=== PATIENT | female | born 1965 | race Caucasian/White ===

== ENCOUNTER 2016-12-08 03:26 | Emergency (ER) | payer MEDICAID ==
[~2016-12-08] VITALS: Ht 165.1 cm; Wt 77.0 kg
[~2016-12-08 03:26] MED LIST: ATOR10TA69 PO; CARV3.1242 PO; DOCU-150 PO; FLUO-124 PO; HYDR25TA PO; LORA10TA7 PO; LORA1TAB PO; LOSA100T14 PO; MAPAP PO; METF500T4 PO; NIFE30TA94 PO; PANT40TA4 PO
[2016-12-08] MEDS ORDERED: LORAZEPAM 0.5MG TABLET PO ONE (07:30)
[2016-12-08 08:05] VITALS: BP 132/78
== END 2016-12-08 09:07 | disposition home or self-care (01) ==
LOC: ER 08:47
DX: F41.9 Anxiety disorder, unspecified (principal); M25.511 Pain in right shoulder; R11.0 Nausea; I10 Essential (primary) hypertension; E78.00 Pure hypercholesterolemia, unspecified; E11.9 Type 2 diabetes mellitus without complications; Z79.899 Other long term (current) drug therapy
CPT/HCPCS: 99284

== ENCOUNTER 2017-04-23 15:33 | Emergency (ER) | payer MEDICAID ==
[~2017-04-23] VITALS: Ht 165.1 cm; Wt 74.0 kg
[2017-04-23] MEDS ORDERED: LABETALOL HCL 20MG/4ML CARPUJECT IV PRN (16:45)
[2017-04-23] MEDS ORDERED: LABETALOL 5MG/ML SYR 20 MG/4 ML SYRINGE IV PRN (16:50)
[2017-04-23 17:29] LABS: BASOPHILS % 0.3 % (0.0-2.0); EOSINOPHILS % 1.3 % (0.0-5.0); HEMATOCRIT. 41.2 % (36.0-48.0); HEMOGLOBIN. 13.8 g/dL (12.0-16.0); MEAN CORPUSCULAR HEMOGLOBIN 29.3 pg (28.0-32.0); MEAN CORPUSCULAR VOLUME 87.4 fL (81.0-99.0); MEAN PLATELET VOLUME 8.6 fl (7.4-10.4); MONOCYTES % 5.9 % (2.0-8.0); NEUTROPHILS % 67.5 % (40.0-76.0); PLATELET 310 x1000/uL (130-400); RED BLOOD CELL COUNT 4.71 mill/uL (4.2-5.4); RED CELL DISTRIBUTION WIDTH 14.8 % (11.6-14.6)
[2017-04-23 17:34] LABS: PROTHROMBIN TIME 10.8 sec (9.4-11.6)
[2017-04-23 17:44] LABS: CARBON DIOXIDE 26 mEq/L (21-32); CHLORIDE 103 mEq/L (98-107); TROPONIN I < 0.02 ng/mL (0.00-0.04)
[2017-04-23 18:53] LABS: *AMPHETAMINES SCREEN URINE NEGATIVE (NEGATIVE); *BARBITURATES SCREEN URINE NEGATIVE (NEGATIVE); *BENZODIAZEPINES SCREEN URINE NEGATIVE (NEGATIVE); *COCAINE SCREEN URINE NEGATIVE (NEGATIVE); CANNABINOID URINE SCREEN NEGATIVE (NEGATIVE); METHADONE URINE SCREEN NEGATIVE (NEGATIVE); OPIATES URINE SCREEN NEGATIVE (NEGATIVE); PHENCYCLIDINE URINE SCREEN NEGATIVE (NEGATIVE)
[2017-04-23] MEDS ORDERED: KETOROLAC 30MG/ML VIAL IV ONE (19:15)
[2017-04-23 21:00] VITALS: BP 135/85
== END 2017-04-23 21:38 | disposition home or self-care (01) ==
LOC: ER 15:33
DX: I10 Essential (primary) hypertension (principal); M54.2 Cervicalgia; M54.9 Dorsalgia, unspecified; M25.519 Pain in unspecified shoulder; E11.9 Type 2 diabetes mellitus without complications; E78.00 Pure hypercholesterolemia, unspecified
CPT/HCPCS: 36415; 71010; 80048; 80305; 82962; 83880; 84484; 85025; 85610; 93005; 96374; 96375; 99285; J1885; Z7610; J3490

== ENCOUNTER 2017-04-28 19:36 | Emergency (ER) | payer MEDICAID ==
[~2017-04-28] VITALS: Ht 165.1 cm; Wt 79.0 kg
[2017-04-28] MEDS ORDERED: LORAZEPAM 2MG/ML CPJ IV STA (23:26)
[2017-04-28] MEDS ORDERED: KETOROLAC 30MG/ML VIAL IV STA (23:26)
[2017-04-29] MEDS ORDERED: HYDROCODONE/ACETAMINOPHEN 10/325MG TABLET PO ONE (04:30)
[2017-04-29 04:49] VITALS: BP 113/80
== END 2017-04-29 04:51 | disposition home or self-care (01) ==
LOC: ER 19:36
DX: I10 Essential (primary) hypertension (principal); F41.9 Anxiety disorder, unspecified; E11.9 Type 2 diabetes mellitus without complications; M54.2 Cervicalgia; Z79.899 Other long term (current) drug therapy
CPT/HCPCS: 82962; 96374; 96375; 99284; J1885; J2060; J7030; Z7610

== ENCOUNTER 2018-01-03 01:28 | Emergency (ER) | payer MEDICAID ==
[~2018-01-03] VITALS: Ht 162.6 cm; Wt 79.0 kg
[~2018-01-03 01:28] MED LIST changes: -HYDR25TA PO
[2018-01-03] MEDS ORDERED: KETOROLAC 30MG/ML VIAL IV STA (03:49)
[2018-01-03 04:21] LABS: BASOPHILS % 0.3 % (0.0-2.0); EOSINOPHILS % 0.7 % (0.0-5.0); HEMATOCRIT. 39.1 % (36.0-48.0); HEMOGLOBIN. 13.2 g/dL (12.0-16.0); LYMPHOCYTES % 12.9 % (20.0-50.0); MEAN CORPUSCULAR HEMOGLOBIN 29.9 pg (28.0-32.0); MEAN CORPUSCULAR VOLUME 88.4 fL (81.0-99.0); MEAN PLATELET VOLUME 8.3 fl (7.4-10.4); MONOCYTES % 4.7 % (2.0-8.0); NEUTROPHILS % 81.4 % (40.0-76.0); PLATELET 293 x1000/uL (130-400); RED BLOOD CELL COUNT 4.42 mill/uL (4.2-5.4); RED CELL DISTRIBUTION WIDTH 14.3 % (11.6-14.6)
[2018-01-03 04:25] LABS: CHLORIDE 104 mEq/L (98-107)
[2018-01-03 04:26] LABS: INR 1.1; PARTIAL THROMBOPLASTIN TIME 28.3 sec (23.4-31.0); PROTHROMBIN TIME 11.3 sec (9.4-11.6)
[2018-01-03 06:30] VITALS: BP 145/92
== END 2018-01-03 06:30 | disposition home or self-care (01) ==
LOC: ER 01:28 → CANBEDREQ 07:35
DX: I10 Essential (primary) hypertension (principal); R51 Headache; D72.829 Elevated white blood cell count, unspecified; E11.9 Type 2 diabetes mellitus without complications
CPT/HCPCS: 36415; 80053; 83880; 84484; 85025; 85610; 85730; 93005; 96374; 99285; J1885; Z7610

== ENCOUNTER 2018-07-11 13:23 | Emergency (ER) | payer MEDICAID ==
[~2018-07-11] VITALS: Ht 165.1 cm; Wt 79.0 kg
[~2018-07-11 13:23] MED LIST changes: +METF-414 PO; -METF500T4 PO
[2018-07-11] MEDS ORDERED: MORPHINE SULFATE 4 MG/ML CPJ (NOT FOR IM USE) IV STA (14:20)
[2018-07-11] MEDS ORDERED: ONDANSETRON HCL 4MG/2ML INJ IV STA (14:20)
[2018-07-11] MEDS ORDERED: KETOROLAC 30MG/ML VIAL IV STA (14:20)
[2018-07-11 15:01] LABS: BASOPHILS % 0.4 % (0.0-2.0); EOSINOPHILS % 1.5 % (0.0-5.0); HEMATOCRIT. 41.1 % (36.0-48.0); HEMOGLOBIN. 13.6 g/dL (12.0-16.0); LYMPHOCYTES % 19.8 % (20.0-50.0); MEAN CORPUSCULAR HEMOGLOBIN 29.8 pg (28.0-32.0); MEAN CORPUSCULAR VOLUME 89.9 fL (81.0-99.0); MEAN PLATELET VOLUME 8.5 fl (7.4-10.4); MONOCYTES % 6.4 % (2.0-8.0); NEUTROPHILS % 71.9 % (40.0-76.0); PLATELET 324 x1000/uL (130-400); RED BLOOD CELL COUNT 4.58 mill/uL (4.2-5.4); RED CELL DISTRIBUTION WIDTH 14.4 % (11.6-14.6)
[2018-07-11 15:03] LABS: CHLORIDE 102 mEq/L (98-107)
[2018-07-11 15:11] LABS: PARTIAL THROMBOPLASTIN TIME 27.3 sec (23.4-31.0); PROTHROMBIN TIME 10.3 sec (9.1-11.1)
[2018-07-11 15:12] LABS: CREATINE KINASE 94 IU/L (26-192)
[2018-07-11] MEDS ORDERED: LORAZEPAM 2MG/ML CPJ IV ONE (15:15)
[2018-07-11 16:09] VITALS: BP 148/88
== END 2018-07-11 16:14 | disposition home or self-care (01) ==
LOC: ER 13:23
DX: S16.1XXA Strain of muscle, fascia and tendon at neck level, initial encounter (principal); M62.838 Other muscle spasm; E11.9 Type 2 diabetes mellitus without complications; I10 Essential (primary) hypertension; Z79.899 Other long term (current) drug therapy; X58.XXXA Exposure to other specified factors, initial encounter; Y93.89 Activity, other specified; Y92.89 Other specified places as the place of occurrence of the external cause; Y99.8 Other external cause status
CPT/HCPCS: 36415; 80053; 82550; 83690; 83880; 84484; 85025; 85610; 85730; 96374; 96375; 99283; J1885; J2060; J2270; J2405

== ENCOUNTER 2018-11-11 01:27 | Emergency (ER) | payer MEDICAID ==
[~2018-11-11] VITALS: Ht 165.1 cm; Wt 81.0 kg
[2018-11-11] MEDS ORDERED: ASPIRIN 81MG TABLET PO ONE (08:00)
[2018-11-11 08:17] LABS: BASOPHILS % 0.4 % (0.0-2.0); EOSINOPHILS % 1.9 % (0.0-5.0); HEMOGLOBIN. 13.8 g/dL (12.0-16.0); LYMPHOCYTES % 28.6 % (20.0-50.0); MEAN CORPUSCULAR HEMOGLOBIN 29.9 pg (28.0-32.0); MEAN PLATELET VOLUME 7.8 fl (7.4-10.4); MONOCYTES % 6.3 % (2.0-8.0); NEUTROPHILS % 62.8 % (40.0-76.0); PLATELET 356 x1000/uL (130-400); RED BLOOD CELL COUNT 4.61 mill/uL (4.2-5.4); RED CELL DISTRIBUTION WIDTH 13.9 % (11.6-14.6)
[2018-11-11 08:24] LABS: CHLORIDE 103 mEq/L (98-107)
[2018-11-11] MEDS ORDERED: HYDROCODONE/ACETAMINOPHEN 5/325MG TABLET PO ONE (10:00)
[2018-11-11 12:56] VITALS: BP 168/90
== END 2018-11-11 12:59 | disposition home or self-care (01) ==
LOC: ER 01:27
DX: M79.10 Myalgia, unspecified site (principal); R03.0 Elevated blood-pressure reading, without diagnosis of hypertension; J45.909 Unspecified asthma, uncomplicated; E11.9 Type 2 diabetes mellitus without complications; I10 Essential (primary) hypertension; B02.9 Zoster without complications
CPT/HCPCS: 36415; 71045; 80053; 84484; 85025; 93005; 99284; Z7610

== ENCOUNTER 2019-03-24 03:18 | Emergency (ER) | payer MEDICAID ==
[~2019-03-24] VITALS: Ht 165.1 cm; Wt 81.0 kg
[~2019-03-24 03:18] MED LIST changes: -LOSA100T14 PO; +LOSA100T32 PO
[2019-03-24] MEDS ORDERED: KETOROLAC 60MG/2ML VIAL IM STA (03:58)
[2019-03-24 04:16] LABS: BASOPHILS % 0.2 % (0.0-2.0); EOSINOPHILS % 1.6 % (0.0-5.0); HEMATOCRIT. 39.8 % (36.0-48.0); HEMOGLOBIN. 13.3 g/dL (12.0-16.0); LYMPHOCYTES % 24.1 % (20.0-50.0); MEAN CORPUSCULAR HEMOGLOBIN 29.6 pg (28.0-32.0); MEAN CORPUSCULAR VOLUME 88.9 fL (81.0-99.0); MEAN PLATELET VOLUME 8.3 fl (7.4-10.4); MONOCYTES % 6.4 % (2.0-8.0); NEUTROPHILS % 67.7 % (40.0-76.0); PLATELET 325 x1000/uL (130-400); RED BLOOD CELL COUNT 4.48 mill/uL (4.2-5.4); RED CELL DISTRIBUTION WIDTH 14.6 % (11.6-14.6)
[2019-03-24 04:23] LABS: CHLORIDE 105 mEq/L (98-107)
[2019-03-24 04:32] LABS: T4 FREE 1.04 ng/dL (0.76-1.46)
[2019-03-24 05:45] VITALS: BP 154/89
== END 2019-03-24 05:52 | disposition home or self-care (01) ==
LOC: ER 03:18
DX: I10 Essential (primary) hypertension (principal); R07.9 Chest pain, unspecified; F41.9 Anxiety disorder, unspecified; E11.9 Type 2 diabetes mellitus without complications; K21.9 Gastro-esophageal reflux disease without esophagitis
CPT/HCPCS: 36415; 80053; 83880; 84439; 84443; 84484; 85025; 93005; 96372; 99284; J1885

== ENCOUNTER 2019-09-25 12:08 | Inpatient (IN) | payer MEDICAID ==
[~2019-09-25] VITALS: Ht 162.6 cm; Wt 84.0 kg
[~2019-09-25 12:08] MED LIST changes: -FLUO-124 PO; +FLUO20CA39 PO
[2019-09-25] MEDS ORDERED: MORPHINE SULFATE 4 MG/ML CPJ (NOT FOR IM USE) IV ONE (18:00)
[2019-09-25] MEDS ORDERED: KETOROLAC 30MG/ML VIAL IV ONE (18:00)
[2019-09-25] MEDS ORDERED: CLONIDINE 0.2MG TABLET PO ONE (18:00)
[2019-09-25 18:02] LABS: BASOPHILS % 0.6 % (0.0-2.0); EOSINOPHILS % 1.1 % (0.0-5.0); HEMATOCRIT. 44.8 % (36.0-48.0); LYMPHOCYTES % 27.7 % (20.0-50.0); MEAN CORPUSCULAR HEMOGLOBIN 29.3 pg (28.0-32.0); MEAN CORPUSCULAR VOLUME 87.4 fL (81.0-99.0); MEAN PLATELET VOLUME 8.2 fl (7.4-10.4); MONOCYTES % 6.2 % (2.0-8.0); NEUTROPHILS % 64.4 % (40.0-76.0); PLATELET 383 x1000/uL (130-400); RED BLOOD CELL COUNT 5.12 mill/uL (4.2-5.4); RED CELL DISTRIBUTION WIDTH 14.1 % (11.6-14.6)
[2019-09-25 18:08] LABS: CHLORIDE 104 mEq/L (98-107)
[2019-09-25 18:58] LABS: CLARITY URINE CLEAR (CLEAR); COLOR URINE YELLOW (YELLOW); KETONES URINE TRACE (NEGATIVE); LEUKOCYTE ESTERASE URINE NEGATIVE (NEGATIVE); NITRITE URINE NEGATIVE (NEGATIVE); OCCULT BLOOD URINE 1+ (NEGATIVE); PROTEIN URINE TRACE (NEGATIVE); SPECIFIC GRAVITY URINE 1.008 (1.005-1.030); UROBILINOGEN URINE 0.2 E.U./dL (0.2-1.0)
[2019-09-25] MEDS ORDERED: HYDRALAZINE 20MG/ML VIAL IV NR (20:00)
[2019-09-25] MEDS ORDERED: NA PHOS,M-B/NA PHOS,DI-BA ENEMA 118ML PR PRN (21:15)
[2019-09-25] MEDS ORDERED: IPRATROPIUM/ALBUTEROL 0.5-3(2.5)MG/3ML NEB NEB PRN (21:15)
[2019-09-25] MEDS ORDERED: GUAIFENESIN 200MG/10ML SUGAR FREE UDC PO PRN (21:15)
[2019-09-25] MEDS ORDERED: HYDRALAZINE 20MG/ML VIAL IV PRN (21:15)
[2019-09-25] MEDS ORDERED: CARVEDILOL 3.125 MG TABLET PO SCH (21:15)
[2019-09-25] MEDS ORDERED: DOCUSATE SODIUM 100MG CAPSULE PO PRN (21:15)
[2019-09-25] MEDS ORDERED: DIPHENHYDRAMINE 50MG/ML VIAL IV PRN (21:15)
[2019-09-25] MEDS ORDERED: DEXTROSE 50% WATER 50ML SYRINGE IV PRN (21:15)
[2019-09-25] MEDS ORDERED: MORPHINE SULFATE 2 MG/ML CPJ (NOT FOR IM USE) IV PRN (21:15)
[2019-09-25] MEDS ORDERED: CLONIDINE 0.1MG TABLET PO PRN (21:15)
[2019-09-25] MEDS ORDERED: MAGNESIUM/ALUMINUM HYDROXIDE/SIMETHICONE 30ML UDC PO PRN (21:15)
[2019-09-25] MEDS ORDERED: LORAZEPAM 2MG/ML CPJ IV PRN (21:15)
[2019-09-25] MEDS ORDERED: ONDANSETRON HCL 4MG/2ML INJ IV PRN (21:15)
[2019-09-25] MEDS ORDERED: HYDROCODONE/ACETAMINOPHEN 10/325MG TABLET PO PRN (21:15)
[2019-09-26 04:45] LABS: BASOPHILS % 0.3 % (0.0-2.0); EOSINOPHILS % 0.4 % (0.0-5.0); HEMATOCRIT. 39.2 % (36.0-48.0); HEMOGLOBIN. 12.8 g/dL (12.0-16.0); LYMPHOCYTES % 18.6 % (20.0-50.0); MEAN CORPUSCULAR HEMOGLOBIN 28.9 pg (28.0-32.0); MEAN CORPUSCULAR VOLUME 88.2 fL (81.0-99.0); MEAN PLATELET VOLUME 8.4 fl (7.4-10.4); MONOCYTES % 7.2 % (2.0-8.0); NEUTROPHILS % 73.5 % (40.0-76.0); PLATELET 347 x1000/uL (130-400); RED BLOOD CELL COUNT 4.44 mill/uL (4.2-5.4); RED CELL DISTRIBUTION WIDTH 14.5 % (11.6-14.6)
[2019-09-26 04:50] LABS: CHLORIDE 105 mEq/L (98-107)
[2019-09-26 04:59] LABS: CREATINE KINASE MB FRACTION < 1.0 ng/mL (0.5-3.6); LDL CHOLESTEROL 154 mg/dL (5-100)
[2019-09-26 05:00] LABS: CREATINE KINASE 71 IU/L (26-192)
[2019-09-26 05:01] LABS: HDL CHOLESTEROL 56 mg/dL (40-59); T4 FREE 0.89 ng/dL (0.76-1.46)
[2019-09-26 11:00] VITALS: BP 159/102
[2019-09-26] MEDS: BLOOD SUGAR DIAGNOSTIC STRIP TEST SCH ×3 (12:11→21:00)
[2019-09-26] MEDS: INSULIN LISPRO 100 UNITS/ML SUBCUT SCH ×3 (12:11→21:00)
[2019-09-26] MEDS: ENOXAPARIN 40MG/0.4ML SYR SUBCUT SCH (12:28)
[2019-09-26] MEDS: SODIUM CHLORIDE 0.9% INJ 3ML FLUSH IVF SCH ×2 (13:31→22:00)
[2019-09-26] MEDS ORDERED: REGADENOSON 0.4 MG/5 ML IV NR (15:15)
[2019-09-26 16:00] VITALS: BP 151/86
[2019-09-26] MEDS: ACETAMINOPHEN 325MG TABLET PO PRN (17:27)
[2019-09-26 20:00] VITALS: BP 123/71
[2019-09-27] VITALS: BP 110/70
[2019-09-27 04:00] VITALS: BP 149/92
[2019-09-27] MEDS: SODIUM CHLORIDE 0.9% INJ 3ML FLUSH IVF SCH ×3 (06:00→21:28)
[2019-09-27 06:17] LABS: BASOPHILS % 0.3 % (0.0-2.0); EOSINOPHILS % 2.5 % (0.0-5.0); HEMATOCRIT. 40.4 % (36.0-48.0); HEMOGLOBIN. 13.4 g/dL (12.0-16.0); LYMPHOCYTES % 38.5 % (20.0-50.0); MEAN CORPUSCULAR HEMOGLOBIN 29.3 pg (28.0-32.0); MEAN CORPUSCULAR VOLUME 88.2 fL (81.0-99.0); MEAN PLATELET VOLUME 8.5 fl (7.4-10.4); MONOCYTES % 8.2 % (2.0-8.0); NEUTROPHILS % 50.5 % (40.0-76.0); PLATELET 354 x1000/uL (130-400); RED BLOOD CELL COUNT 4.58 mill/uL (4.2-5.4); RED CELL DISTRIBUTION WIDTH 14.1 % (11.6-14.6)
[2019-09-27] MEDS: ACETAMINOPHEN 325MG TABLET PO PRN ×2 (06:36→16:27)
[2019-09-27] MEDS: BLOOD SUGAR DIAGNOSTIC STRIP TEST SCH ×4 (07:33→21:28)
[2019-09-27 08:00] VITALS: BP 128/80
[2019-09-27] MEDS: INSULIN LISPRO 100 UNITS/ML SUBCUT SCH ×4 (08:10→21:00)
[2019-09-27 09:41] LABS: CHLORIDE 106 mEq/L (98-107)
[2019-09-27] MEDS ORDERED: REGADENOSON 0.4 MG/5 ML IV ONE (10:53)
[2019-09-27 12:00] VITALS: BP 128/85
[2019-09-27] MEDS ORDERED: HYDRALAZINE 20MG/ML VIAL ONE (12:04)
[2019-09-27] MEDS: ENOXAPARIN 40MG/0.4ML SYR SUBCUT SCH (13:31)
[2019-09-27 16:00] VITALS: BP 140/90
[2019-09-27 20:00] VITALS: BP 110/72
[2019-09-27] MEDS: AMLODIPINE 2.5MG TABLET PO SCH (21:28)
[2019-09-28] VITALS: BP 132/87
[2019-09-28 04:00] VITALS: BP 123/83
[2019-09-28] MEDS: SODIUM CHLORIDE 0.9% INJ 3ML FLUSH IVF SCH (05:50)
[2019-09-28 06:53] LABS: BASOPHILS % 0.2 % (0.0-2.0); EOSINOPHILS % 2.5 % (0.0-5.0); HEMATOCRIT. 38.7 % (36.0-48.0); HEMOGLOBIN. 12.9 g/dL (12.0-16.0); LYMPHOCYTES % 31.6 % (20.0-50.0); MEAN CORPUSCULAR HEMOGLOBIN 29.6 pg (28.0-32.0); MEAN CORPUSCULAR VOLUME 88.4 fL (81.0-99.0); MONOCYTES % 8.2 % (2.0-8.0); NEUTROPHILS % 57.5 % (40.0-76.0); PLATELET 366 x1000/uL (130-400); RED BLOOD CELL COUNT 4.37 mill/uL (4.2-5.4)
[2019-09-28 08:00] VITALS: BP 170/99
[2019-09-28] MEDS: INSULIN LISPRO 100 UNITS/ML SUBCUT SCH (08:10)
[2019-09-28] MEDS: BLOOD SUGAR DIAGNOSTIC STRIP TEST SCH (08:16)
[2019-09-28] MEDS: AMLODIPINE 2.5MG TABLET PO SCH (09:00)
[2019-09-28] MEDS: ENOXAPARIN 40MG/0.4ML SYR SUBCUT SCH (09:01)
[2019-09-28 09:13] LABS: CHLORIDE 106 mEq/L (98-107)
[2019-09-28 09:54] VITALS: BP 148/87
== END 2019-09-28 10:39 | disposition home or self-care (01) | DRG 243 ==
LOC: ER 12:08 → 7WST 20:57 → CANRESERV 21:34 → ENRESERV 21:34 → EDBEDREQTM 21:50 → EDBEDREQSVC 21:50 → ENRESERV 09-26 08:38 → CANRESERV 09-26 08:38
PROVIDERS: ADMIT Internal Medicine; ATTEND Internal Medicine
DX: K21.9 Gastro-esophageal reflux disease without esophagitis (principal); R65.10 Systemic inflammatory response syndrome (SIRS) of non-infectious origin without acute organ dysfunction; E11.9 Type 2 diabetes mellitus without complications; I16.9 Hypertensive crisis, unspecified; E78.5 Hyperlipidemia, unspecified; F41.9 Anxiety disorder, unspecified; K44.9 Diaphragmatic hernia without obstruction or gangrene; M54.2 Cervicalgia; E78.00 Pure hypercholesterolemia, unspecified; I10 Essential (primary) hypertension; Z79.84 Long term (current) use of oral hypoglycemic drugs; Z79.899 Other long term (current) drug therapy
CPT/HCPCS: 36415; 71045; 78452; 80048; 80053; 80061; 81003; 82550; 82553; 82962; 83735; 84439; 84443; 84484; 85025; 93005; 93017; 93970; 99291; A9500; J0360; J1650; J1885; J2270; J2785

== ENCOUNTER 2020-03-23 14:09 | Emergency (ER) | payer MEDICAID ==
[~2020-03-23] VITALS: Ht 165.1 cm; Wt 72.0 kg
[2020-03-23] MEDS ORDERED: ACETAMINOPHEN 325MG TABLET PO ONE (15:30)
[2020-03-23] MEDS ORDERED: LIDOCAINE 5% PATCH TOP SCH (16:45)
[2020-03-23 17:58] VITALS: BP 134/76
== END 2020-03-23 18:06 | disposition home or self-care (01) ==
LOC: ER 14:09
DX: S13.8XXA Sprain of joints and ligaments of other parts of neck, initial encounter (principal); M25.511 Pain in right shoulder; V49.59XA Passenger injured in collision with other motor vehicles in traffic accident, initial encounter; Y93.89 Activity, other specified; Y92.89 Other specified places as the place of occurrence of the external cause; Y99.8 Other external cause status; I10 Essential (primary) hypertension; Z79.899 Other long term (current) drug therapy
CPT/HCPCS: 71045; 73030; 93005; 99284

== ENCOUNTER 2020-11-21 10:38 | Emergency (ER) | payer MEDICAID ==
[~2020-11-21] VITALS: Ht 160 cm; Wt 73.0 kg
[~2020-11-21 10:38] MED LIST changes: -PANT40TA4 PO; +PANT40TA51 PO
[2020-11-21] MEDS ORDERED: ACETAMINOPHEN 325MG TABLET PO ONE (11:30)
[2020-11-21] MEDS ORDERED: KETOROLAC 60MG/2ML VIAL IM ONE (11:30)
[2020-11-21 11:31] LABS: BASOPHILS % 0.2 % (0.0-2.0); EOSINOPHILS % 2.1 % (0.0-5.0); HEMOGLOBIN. 12.9 g/dL (12.0-16.0); LYMPHOCYTES % 19.8 % (20.0-50.0); MEAN CORPUSCULAR VOLUME 88.5 fL (81.0-99.0); MEAN PLATELET VOLUME 8.5 fl (7.4-10.4); MONOCYTES % 5.6 % (2.0-8.0); NEUTROPHILS % 72.3 % (40.0-76.0); PLATELET 335 x1000/uL (130-400); RED BLOOD CELL COUNT 4.29 mill/uL (4.2-5.4); RED CELL DISTRIBUTION WIDTH 14.2 % (11.6-14.6)
[2020-11-21 11:36] LABS: CHLORIDE 106 mEq/L (98-107)
[2020-11-21] MEDS ORDERED: NAPR-677 MT (12:42)
[2020-11-21 13:19] VITALS: BP 139/79
== END 2020-11-21 13:36 | disposition home or self-care (01) ==
LOC: ER 10:38
DX: M25.511 Pain in right shoulder (principal); I10 Essential (primary) hypertension; M79.18 Myalgia, other site; Z79.899 Other long term (current) drug therapy
CPT/HCPCS: 36415; 71045; 80053; 83880; 84484; 85025; 93005; 96372; 99285; J1885

== ENCOUNTER 2021-06-23 21:25 | Emergency (ER) | payer MEDICAID ==
[~2021-06-23] VITALS: Ht 165.1 cm; Wt 84.0 kg
[~2021-06-23 21:25] MED LIST changes: +NAPR-677 MT
[2021-06-24] MEDS ORDERED: HYDROCODONE/ACETAMINOPHEN 5/325MG TABLET PO ONE (02:45)
[2021-06-24] MEDS ORDERED: CYCLOBENZAPRINE 10MG TABLET PO ONE (02:45)
[2021-06-24] MEDS ORDERED: CYCL10TA7 MT (03:17)
[2021-06-24] MEDS ORDERED: NAPR-679 MT (03:17)
[2021-06-24 03:37] VITALS: BP 129/81
== END 2021-06-24 03:40 | disposition home or self-care (01) ==
LOC: ER 21:25
DX: M19.90 Unspecified osteoarthritis, unspecified site (principal); I10 Essential (primary) hypertension; E11.9 Type 2 diabetes mellitus without complications
CPT/HCPCS: 99283

== ENCOUNTER 2021-11-12 10:47 | Emergency (ER) | payer MEDICAID ==
[~2021-11-12] VITALS: Ht 165.1 cm; Wt 84.0 kg
[~2021-11-12 10:47] MED LIST changes: +CYCL10TA7 MT; +NAPR-679 MT
[2021-11-12 10:57] VITALS: BP 130/86
[2021-11-12 11:16] LABS: BASOPHILS % 0.3 % (0.0-2.0); EOSINOPHILS % 0.4 % (0.0-5.0); HEMATOCRIT. 39.6 % (36.0-48.0); HEMOGLOBIN. 13.1 g/dL (12.0-16.0); LYMPHOCYTES % 16.9 % (20.0-50.0); MEAN CORPUSCULAR HEMOGLOBIN 29.6 pg (28.0-32.0); MEAN PLATELET VOLUME 8.4 fl (7.4-10.4); MONOCYTES % 5.1 % (2.0-8.0); NEUTROPHILS % 77.3 % (40.0-76.0); PLATELET 339 x1000/uL (130-400); RED BLOOD CELL COUNT 4.44 mill/uL (4.2-5.4); RED CELL DISTRIBUTION WIDTH 15.2 % (11.6-14.6)
[2021-11-12 11:24] LABS: CHLORIDE 104 mEq/L (98-107)
[2021-11-12] MEDS ORDERED: KETOROLAC 60MG/2ML VIAL IM ONE (11:30)
[2021-11-12 12:21] LABS: CLARITY URINE CLEAR (CLEAR); COLOR URINE ORANGE (YELLOW); KETONES URINE NEGATIVE (NEGATIVE); LEUKOCYTE ESTERASE URINE NEGATIVE (NEGATIVE); NITRITE URINE NEGATIVE (NEGATIVE); OCCULT BLOOD URINE 3+ (NEGATIVE); PH URINE 6.5 (4.5-8.0); PROTEIN URINE TRACE (NEGATIVE); SPECIFIC GRAVITY URINE 1.012 (1.005-1.030); UROBILINOGEN URINE 0.2 E.U./dL (0.2-1.0)
== END 2021-11-12 13:54 | disposition home or self-care (01) ==
LOC: ER 10:47
DX: R10.9 Unspecified abdominal pain (principal); N92.4 Excessive bleeding in the premenopausal period; F41.9 Anxiety disorder, unspecified; I10 Essential (primary) hypertension; M19.90 Unspecified osteoarthritis, unspecified site
CPT/HCPCS: 36415; 76830; 76856; 80053; 81003; 85025; 96372; 99284; J1885